=== PATIENT | female | born 2000 | race Caucasian/White ===

== ENCOUNTER 2020-08-03 18:21 | Emergency (ER) | payer BC, OTHER ==
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
[2020-08-03] MEDS ORDERED: Acetaminophen/oxyCODONE 325-5 MG Tab PO ONE (18:46)
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
== END 2020-08-03 20:30 | disposition home or self-care (01) ==
LOC: MW.ED 18:21
DX: S62.324A Displaced fracture of shaft of fourth metacarpal bone, right hand, initial encounter for closed fracture (principal); S62.326A Displaced fracture of shaft of fifth metacarpal bone, right hand, initial encounter for closed fracture; S62.612A Displaced fracture of proximal phalanx of right middle finger, initial encounter for closed fracture; S01.81XA Laceration without foreign body of other part of head, initial encounter; S60.222A Contusion of left hand, initial encounter; M25.562 Pain in left knee; I10 Essential (primary) hypertension; F32.9 Major depressive disorder, single episode, unspecified; F41.9 Anxiety disorder, unspecified; E66.9 Obesity, unspecified; Z68.43 Body mass index [BMI] 50.0-59.9, adult; Z88.1 Allergy status to other antibiotic agents; Z79.899 Other long term (current) drug therapy; V47.6XXA Car passenger injured in collision with fixed or stationary object in traffic accident, initial encounter; Y92.410 Unspecified street and highway as the place of occurrence of the external cause
CPT/HCPCS: 29125; 73130; 73560; 99283; A9270